=== PATIENT | male | born 1940 | race Caucasian/White ===

== ENCOUNTER 2019-04-08 10:02 | Inpatient (IN) | payer MEDICARE, MEDICAID ==
[2019-04-08] VITALS (30 sets, daily range): BP systolic 86–141; BP diastolic 41–72
[~2019-04-08] VITALS: Ht 182.9 cm; Wt 69.4 kg
[2019-04-08] MEDS ORDERED: SODIUM CHLORIDE 0.9% 1,000 ML IV ONE (10:40)
[2019-04-08] MEDS ORDERED: PIPERACILLIN/TAZ 3.375G PREMIX 50 ML IV ONE (11:15)
[2019-04-08] MEDS ORDERED: SODIUM CHLORIDE 0.9% 1000ML BAG (SEPSIS BOLUS) IV ONE (11:15)
[2019-04-08] MEDS ORDERED: VANCOMYCIN 1 G PREMIX 200 ML IV ONE (11:15)
[2019-04-08 12:41] LABS: HEMATOCRIT. 37.8 % (42.0-52.0); MEAN CORPUSCULAR HEMOGLOBIN 27.6 pg (28.0-32.0); MEAN CORPUSCULAR VOLUME 86.8 fL (80.0-94.0); MEAN PLATELET VOLUME 8.8 fl (7.4-10.4); PLATELET 119 x1000/uL (130-400); RED BLOOD CELL COUNT 4.35 mill/uL (4.7-6.1); RED CELL DISTRIBUTION WIDTH 19.9 % (11.6-14.6)
[2019-04-08 12:43] LABS: CHLORIDE 101 mEq/L (98-107); INR 1.5; PROTHROMBIN TIME 15.2 sec (9.6-11.0)
[2019-04-08 13:12] LABS: PLATELET ESTIMATE SLIGHTLY DECREASED
[2019-04-08 13:12] LABS: BG BASE EXCESS 2.3 mmol/L (-2.0-2.0); BG CARBOXYHEMOGLOBIN 0.8 % (0.5-1.5); BG DEOXYHEMOGLOBIN 0.2 % (0.0-5.0); BG FRACTION INSPIRED OXYGEN 100; BG HCO3 ACT 25.3 mmol/L (22.0-26.0); BG METHEMOGLOBIN 0.3 % (0.0-1.5); BG OXYGEN SATURATION 99.8 % (92.0-98.5); BG OXYHEMOGLOBIN 98.7 % (94.0-97.0); BG PCO2 33.8 mmHg (35.0-45.0); BG PH 7.492 (7.350-7.450); BG PO2 367.6 mmHg (75.0-100.0); BG SAMPLE SITE LEFT BRACHIAL; BG TIDAL VOLUME(mL) 550 mL; BG TOTAL HEMOGLOBIN 11.7 g/dL (12.0-18.0); BG VENT MODE VENT - A/C; BG VENT RATE 16 set
[2019-04-08 13:15] LABS: CLARITY URINE CLEAR (CLEAR); COLOR URINE DARK YELLOW (YELLOW); KETONES URINE NEGATIVE (NEGATIVE); LEUKOCYTE ESTERASE URINE TRACE (NEGATIVE); NITRITE URINE NEGATIVE (NEGATIVE); OCCULT BLOOD URINE NEGATIVE (NEGATIVE); PROTEIN URINE 1+ (NEGATIVE); SPECIFIC GRAVITY URINE 1.022 (1.005-1.030)
[2019-04-08] MEDS ORDERED: ASPIRIN 325MG EC TABLET PO ONE (13:15)
[2019-04-08] MEDS ORDERED: DEXTROSE 50% WATER 50ML SYRINGE IV ONE ×3 (13:15→17:00)
[2019-04-08] MEDS ORDERED: LORAZEPAM 2MG/ML CPJ ONE (14:42)
[2019-04-08] MEDS ORDERED: PROPOFOL 10MG/ML 100ML 100 ML IV ONE (14:49)
[2019-04-08] MEDS ORDERED: SODIUM CHLORIDE 0.9% 1,000 ML IV SCH (16:29)
[2019-04-08] MEDS ORDERED: ONDANSETRON HCL 4MG/2ML INJ IV PRN (16:30)
[2019-04-08] MEDS ORDERED: PROPOFOL 10MG/ML 100ML 100 ML IV SCH (16:30)
[2019-04-08] MEDS ORDERED: ACETAMINOPHEN 325MG TABLET PO PRN (16:30)
[2019-04-08] MEDS: IPRATROPIUM/ALBUTEROL 0.5-3(2.5)MG/3ML NEB HHN SCH ×2 (16:45→20:30)
[2019-04-08] MEDS: ENOXAPARIN 80MG/0.8ML SYR SUBCUT SCH (17:23)
[2019-04-08] MEDS: DEXT 5%/0.9% NACL 1,000 ML IV SCH (17:55)
[2019-04-08] MEDS ORDERED: PIPERACILLIN/TAZ 3.375G PREMIX 50 ML IV SCH (18:00)
[2019-04-08 18:11] LABS: BG BASE EXCESS 0.9 mmol/L (-2.0-2.0); BG CARBOXYHEMOGLOBIN 0.9 % (0.5-1.5); BG DEOXYHEMOGLOBIN 0.5 % (0.0-5.0); BG FRACTION INSPIRED OXYGEN 50; BG HCO3 ACT 24.1 mmol/L (22.0-26.0); BG METHEMOGLOBIN 0.3 % (0.0-1.5); BG OXYGEN SATURATION 99.5 % (92.0-98.5); BG OXYHEMOGLOBIN 98.3 % (94.0-97.0); BG PCO2 33.7 mmHg (35.0-45.0); BG PH 7.473 (7.350-7.450); BG PO2 194.6 mmHg (75.0-100.0); BG SAMPLE SITE RIGHT RADIAL; BG TIDAL VOLUME(mL) 450 mL; BG TOTAL HEMOGLOBIN 11.6 g/dL (12.0-18.0); BG VENT MODE VENT - A/C; BG VENT RATE 12 set
[2019-04-08] MEDS: PIPERACILLIN/TAZOBACTAM 3.375 G in DEXT 5% WATER 100 ML IV SCH (18:11)
[2019-04-08] MEDS ORDERED: POTASSIUM CHLORIDE INJ 40 MEQ in DEXT 5% WATER 250 ML IV NR (20:00)
[2019-04-08] MEDS: VANCOMYCIN 1250MG in DEXTROSE 5% WATER 250ML IV SCH (22:49)
[2019-04-09] VITALS (81 sets, daily range): BP systolic 59–130; BP diastolic 42–95
[2019-04-09] MEDS: PIPERACILLIN/TAZOBACTAM 3.375 G in DEXT 5% WATER 100 ML IV SCH ×5 (00:14→23:50)
[2019-04-09] MEDS: IPRATROPIUM/ALBUTEROL 0.5-3(2.5)MG/3ML NEB HHN SCH ×7 (00:20→23:42)
[2019-04-09] MEDS: DEXT 5%/0.9% NACL 1,000 ML IV SCH ×3 (03:29→15:45)
[2019-04-09] MEDS: ENOXAPARIN 80MG/0.8ML SYR SUBCUT SCH (06:17)
[2019-04-09 07:48] LABS: HEMATOCRIT. 32.7 % (42.0-52.0); HEMOGLOBIN. 10.7 g/dL (14.0-18.0); MEAN CORPUSCULAR HEMOGLOBIN 28.6 pg (28.0-32.0); MEAN CORPUSCULAR VOLUME 87.5 fL (80.0-94.0); MEAN PLATELET VOLUME 8.8 fl (7.4-10.4); PLATELET 107 x1000/uL (130-400); RED BLOOD CELL COUNT 3.73 mill/uL (4.7-6.1); RED CELL DISTRIBUTION WIDTH 20.4 % (11.6-14.6)
[2019-04-09 08:05] LABS: CHLORIDE 102 mEq/L (98-107)
[2019-04-09 09:52] LABS: PLATELET ESTIMATE DECREASED
[2019-04-09] MEDS ORDERED: DOBUTAMINE 250MG PREMIX 250 ML IV SCH (10:30)
[2019-04-09] MEDS: VANCOMYCIN 1250MG in DEXTROSE 5% WATER 250ML IV SCH ×2 (10:34→23:50)
[2019-04-09 10:44] LABS: BG BASE EXCESS 2.2 mmol/L (-2.0-2.0); BG CARBOXYHEMOGLOBIN 0.8 % (0.5-1.5); BG DEOXYHEMOGLOBIN 3.4 % (0.0-5.0); BG FRACTION INSPIRED OXYGEN 50; BG METHEMOGLOBIN 0.3 % (0.0-1.5); BG OXYGEN SATURATION 96.6 % (92.0-98.5); BG OXYHEMOGLOBIN 95.5 % (94.0-97.0); BG PCO2 32.7 mmHg (35.0-45.0); BG PH 7.501 (7.350-7.450); BG PO2 81.5 mmHg (75.0-100.0); BG SAMPLE SITE LEFT RADIAL; BG TIDAL VOLUME(mL) 450 mL; BG TOTAL HEMOGLOBIN 11.1 g/dL (12.0-18.0); BG VENT MODE VENT - A/C; BG VENT RATE 12 set
[2019-04-09] MEDS: PANTOPRAZOLE SODIUM 40 MG/VIAL IV SCH (13:53)
[2019-04-09] MEDS ORDERED: DEXTROSE 50% WATER 50ML SYRINGE IV PRN (16:15)
[2019-04-09] MEDS: LORAZEPAM 2MG/ML CPJ IM PRN (16:21)
[2019-04-09] MEDS: BLOOD SUGAR DIAGNOSTIC STRIP TEST SCH ×2 (16:47→23:50)
[2019-04-09] MEDS ORDERED: KCL 20MEQ/100ML PREMIX 100 ML IV NR (21:00)
[2019-04-10] VITALS (80 sets, daily range): BP systolic 90–130; BP diastolic 50–87
[2019-04-10] MEDS: LORAZEPAM 2MG/ML CPJ IM PRN (00:56)
[2019-04-10] MEDS: IPRATROPIUM/ALBUTEROL 0.5-3(2.5)MG/3ML NEB HHN SCH ×5 (04:05→20:23)
[2019-04-10] MEDS: DEXT 5%/0.9% NACL 1,000 ML IV SCH ×2 (05:28→08:18)
[2019-04-10] MEDS: PIPERACILLIN/TAZOBACTAM 3.375 G in DEXT 5% WATER 100 ML IV SCH ×4 (05:30→23:28)
[2019-04-10 06:04] LABS: HEMATOCRIT. 30.9 % (42.0-52.0); MEAN CORPUSCULAR HEMOGLOBIN 28.3 pg (28.0-32.0); MEAN CORPUSCULAR VOLUME 87.6 fL (80.0-94.0); MEAN PLATELET VOLUME 8.2 fl (7.4-10.4); PLATELET 105 x1000/uL (130-400); RED BLOOD CELL COUNT 3.52 mill/uL (4.7-6.1); RED CELL DISTRIBUTION WIDTH 19.7 % (11.6-14.6)
[2019-04-10] MEDS: BLOOD SUGAR DIAGNOSTIC STRIP TEST SCH ×3 (06:15→18:32)
[2019-04-10 06:26] LABS: CHLORIDE 102 mEq/L (98-107)
[2019-04-10] MEDS ORDERED: MAGNESIUM 1 G PREMIX 100 ML IV SCH (08:00)
[2019-04-10] MEDS: PANTOPRAZOLE SODIUM 40 MG/VIAL IV SCH (08:18)
[2019-04-10] MEDS ORDERED: ENOXAPARIN 80MG/0.8ML SYR SUBCUT SCH (09:00)
[2019-04-10] MEDS: DOBUTAMINE 250MG PREMIX 250 ML IV SCH (10:23)
[2019-04-10 12:50] LABS: PLATELET ESTIMATE DECREASED
[2019-04-10 13:15] LABS: BG BASE EXCESS 1.8 mmol/L (-2.0-2.0); BG CARBOXYHEMOGLOBIN 0.4 % (0.5-1.5); BG HCO3 ACT 24.9 mmol/L (22.0-26.0); BG METHEMOGLOBIN 0.1 % (0.0-1.5); BG OXYHEMOGLOBIN 98.5 % (94.0-97.0); BG PCO2 33.4 mmHg (35.0-45.0); BG PO2 153.7 mmHg (75.0-100.0); BG SAMPLE SITE RIGHT RADIAL; BG TIDAL VOLUME(mL) 450 mL; BG TOTAL HEMOGLOBIN 10.5 g/dL (12.0-18.0); BG VENT MODE VENT - SIMV; BG VENT RATE 12 set
[2019-04-10] MEDS ORDERED: LORAZEPAM 2MG/ML CPJ IV PRN (17:30)
[2019-04-10] MEDS: HYDROCODONE/ACETAMINOPHEN 5/325MG TABLET PO PRN (17:51)
[2019-04-10] MEDS: APIXABAN 2.5 MG TABLET PO SCH (20:24)
[2019-04-11] VITALS (92 sets, daily range): BP systolic 87–124; BP diastolic 42–86
[2019-04-11] MEDS: IPRATROPIUM/ALBUTEROL 0.5-3(2.5)MG/3ML NEB HHN SCH ×6 (00:14→20:42)
[2019-04-11] MEDS: BLOOD SUGAR DIAGNOSTIC STRIP TEST SCH ×5 (00:57→23:20)
[2019-04-11] MEDS: DEXT 5%/0.9% NACL 1,000 ML IV SCH ×2 (05:07→17:54)
[2019-04-11] MEDS: PIPERACILLIN/TAZOBACTAM 3.375 G in DEXT 5% WATER 100 ML IV SCH ×4 (05:07→23:19)
[2019-04-11 08:08] LABS: HEMATOCRIT. 30.8 % (42.0-52.0); HEMOGLOBIN. 9.9 g/dL (14.0-18.0); MEAN CORPUSCULAR HEMOGLOBIN 28.4 pg (28.0-32.0); MEAN CORPUSCULAR VOLUME 88.4 fL (80.0-94.0); MEAN PLATELET VOLUME 8.2 fl (7.4-10.4); PLATELET 96 x1000/uL (130-400); RED BLOOD CELL COUNT 3.48 mill/uL (4.7-6.1); RED CELL DISTRIBUTION WIDTH 19.7 % (11.6-14.6)
[2019-04-11 08:18] LABS: CHLORIDE 104 mEq/L (98-107)
[2019-04-11] MEDS: PANTOPRAZOLE SODIUM 40 MG/VIAL IV SCH (08:22)
[2019-04-11] MEDS: APIXABAN 2.5 MG TABLET PO SCH ×2 (08:22→21:06)
[2019-04-11] MEDS: ZINC SULFATE 220 MG ( 50 ) CAPSULE PO SCH (08:22)
[2019-04-11] MEDS: DOBUTAMINE 250MG PREMIX 250 ML IV SCH (09:44)
[2019-04-11] MEDS: ASCORBIC ACID 250 MG TABLET PO SCH (09:44)
[2019-04-11 11:15] LABS: PLATELET ESTIMATE SLIGHTLY DECREASED
[2019-04-11] MEDS: VANCOMYCIN 1250MG in DEXTROSE 5% WATER 250ML IV SCH (11:23)
[2019-04-11] MEDS ORDERED: MAGNESIUM 2 G PREMIX 50 ML IV SCH (12:00)
[2019-04-12] VITALS (56 sets, daily range): BP systolic 95–161; BP diastolic 38–94
[2019-04-12] MEDS: IPRATROPIUM/ALBUTEROL 0.5-3(2.5)MG/3ML NEB HHN SCH ×6 (00:34→21:41)
[2019-04-12] MEDS: HYDROCODONE/ACETAMINOPHEN 5/325MG TABLET PO PRN ×2 (04:31→10:47)
[2019-04-12] MEDS: BLOOD SUGAR DIAGNOSTIC STRIP TEST SCH ×3 (05:52→18:00)
[2019-04-12] MEDS: PIPERACILLIN/TAZOBACTAM 3.375 G in DEXT 5% WATER 100 ML IV SCH ×3 (05:52→18:00)
[2019-04-12 06:47] LABS: HEMATOCRIT. 31.9 % (42.0-52.0); HEMOGLOBIN. 10.2 g/dL (14.0-18.0); MEAN CORPUSCULAR HEMOGLOBIN 28.1 pg (28.0-32.0); MEAN CORPUSCULAR VOLUME 87.7 fL (80.0-94.0); MEAN PLATELET VOLUME 8.1 fl (7.4-10.4); PLATELET 107 x1000/uL (130-400); RED BLOOD CELL COUNT 3.64 mill/uL (4.7-6.1); RED CELL DISTRIBUTION WIDTH 20.2 % (11.6-14.6)
[2019-04-12 06:54] LABS: CHLORIDE 103 mEq/L (98-107)
[2019-04-12] MEDS: ZINC SULFATE 220 MG ( 50 ) CAPSULE PO SCH (08:14)
[2019-04-12] MEDS: PANTOPRAZOLE SODIUM 40 MG/VIAL IV SCH (08:14)
[2019-04-12] MEDS: APIXABAN 2.5 MG TABLET PO SCH ×2 (08:14→21:13)
[2019-04-12] MEDS: ASCORBIC ACID 250 MG TABLET PO SCH (08:14)
[2019-04-12] MEDS: DOBUTAMINE 250MG PREMIX 250 ML IV SCH (09:41)
[2019-04-12] MEDS ORDERED: AMLO2.5T45 PO (09:52)
[2019-04-12] MEDS ORDERED: FUROSEMIDE 40MG/4ML VIAL IVP NR (10:30)
[2019-04-12] MEDS: VANCOMYCIN 1250MG in DEXTROSE 5% WATER 250ML IV SCH (10:47)
[2019-04-12] MEDS: DEXT 5%/0.9% NACL 1,000 ML IV SCH (10:48)
[2019-04-12] MEDS ORDERED: MORPHINE SULFATE 2 MG/ML CPJ (NOT FOR IM USE) IV NR (11:45)
[2019-04-12 13:10] LABS: BG BASE EXCESS -0.2 mmol/L (-2.0-2.0); BG CARBOXYHEMOGLOBIN 0.3 % (0.5-1.5); BG DEOXYHEMOGLOBIN 1.7 % (0.0-5.0); BG FRACTION INSPIRED OXYGEN 40; BG HCO3 ACT 23.6 mmol/L (22.0-26.0); BG OXYGEN SATURATION 98.3 % (92.0-98.5); BG PCO2 35.1 mmHg (35.0-45.0); BG PH 7.445 (7.350-7.450); BG PO2 109.9 mmHg (75.0-100.0); BG PRESSURE SUPPORT 8; BG SAMPLE SITE RIGHT BRACHIAL; BG TOTAL HEMOGLOBIN 10.4 g/dL (12.0-18.0); BG VENT MODE VENT - CPAP
[2019-04-12 13:43] LABS: PLATELET ESTIMATE SLIGHTLY DECREASED
[2019-04-12 14:23] LABS: ETHANOL BLOOD < 10 mg/dL
[2019-04-12 14:29] LABS: T4 FREE 1.03 ng/dL (0.76-1.46)
[2019-04-12 14:47] LABS: FOLIC ACID (FOLATE) SERUM 14.4 ng/mL (>5.38)
[2019-04-12] MEDS ORDERED: BISACODYL 10MG SUPP PR PRN (18:30)
[2019-04-12] MEDS ORDERED: DOCUSATE SODIUM SUGAR FREE 100MG/10ML UDC NG PRN (18:30)
[2019-04-12 20:00] LABS: CLARITY URINE TURBID (CLEAR); COLOR URINE YELLOW (YELLOW); KETONES URINE NEGATIVE (NEGATIVE); LEUKOCYTE ESTERASE URINE TRACE (NEGATIVE); NITRITE URINE NEGATIVE (NEGATIVE); OCCULT BLOOD URINE 3+ (NEGATIVE); PROTEIN URINE TRACE (NEGATIVE); SPECIFIC GRAVITY URINE 1.013 (1.005-1.030)
[2019-04-12 20:20] LABS: *AMPHETAMINES SCREEN URINE NEGATIVE (NEGATIVE); *BARBITURATES SCREEN URINE NEGATIVE (NEGATIVE); *BENZODIAZEPINES SCREEN URINE NEGATIVE (NEGATIVE); *COCAINE SCREEN URINE NEGATIVE (NEGATIVE)
[2019-04-12 20:21] LABS: CANNABINOID URINE SCREEN NEGATIVE (NEGATIVE); METHADONE URINE SCREEN NEGATIVE (NEGATIVE); OPIATES URINE SCREEN PRESUMTIVE POSITIVE (NEGATIVE); PHENCYCLIDINE URINE SCREEN NEGATIVE (NEGATIVE)
[2019-04-13] VITALS (33 sets, daily range): BP systolic 97–143; BP diastolic 42–77
[2019-04-13] MEDS: PIPERACILLIN/TAZOBACTAM 3.375 G in DEXT 5% WATER 100 ML IV SCH ×4 (00:04→17:26)
[2019-04-13] MEDS: BLOOD SUGAR DIAGNOSTIC STRIP TEST SCH ×4 (00:04→17:25)
[2019-04-13] MEDS: IPRATROPIUM/ALBUTEROL 0.5-3(2.5)MG/3ML NEB HHN SCH ×6 (00:45→20:09)
[2019-04-13 06:05] LABS: BASOPHILS % 0.7 % (0.0-2.0); EOSINOPHILS % 1.2 % (0.0-5.0); HEMATOCRIT. 31.7 % (42.0-52.0); HEMOGLOBIN. 10.3 g/dL (14.0-18.0); MEAN CORPUSCULAR HEMOGLOBIN 28.4 pg (28.0-32.0); MEAN CORPUSCULAR VOLUME 87.1 fL (80.0-94.0); MEAN PLATELET VOLUME 8.3 fl (7.4-10.4); MONOCYTES % 8.6 % (2.0-8.0); NEUTROPHILS % 81.5 % (40.0-76.0); PLATELET 105 x1000/uL (130-400); RED BLOOD CELL COUNT 3.64 mill/uL (4.7-6.1)
[2019-04-13 06:11] LABS: CHLORIDE 102 mEq/L (98-107)
[2019-04-13] MEDS ORDERED: DEXT 5%/0.45% NACL 1000ML 1,000 ML IV SCH (08:45)
[2019-04-13] MEDS: PANTOPRAZOLE SODIUM 40 MG/VIAL IV SCH (09:45)
[2019-04-13] MEDS: FUROSEMIDE 40MG/4ML VIAL IVP SCH (09:45)
[2019-04-13] MEDS: ZINC SULFATE 220 MG ( 50 ) CAPSULE PO SCH (09:45)
[2019-04-13] MEDS: ASCORBIC ACID 250 MG TABLET PO SCH (09:45)
[2019-04-13] MEDS: APIXABAN 2.5 MG TABLET PO SCH ×2 (09:45→20:54)
[2019-04-13 11:25] LABS: BG BASE EXCESS 0.2 mmol/L (-2.0-2.0); BG CARBOXYHEMOGLOBIN 1.2 % (0.5-1.5); BG DEOXYHEMOGLOBIN 1.7 % (0.0-5.0); BG FRACTION INSPIRED OXYGEN 40; BG HCO3 ACT 23.3 mmol/L (22.0-26.0); BG METHEMOGLOBIN 0.2 % (0.0-1.5); BG OXYGEN SATURATION 98.3 % (92.0-98.5); BG OXYHEMOGLOBIN 96.9 % (94.0-97.0); BG PCO2 32.8 mmHg (35.0-45.0); BG PRESSURE SUPPORT 8; BG SAMPLE SITE RIGHT RADIAL; BG TOTAL HEMOGLOBIN 11.8 g/dL (12.0-18.0); BG VENT MODE VENT - CPAP
[2019-04-13] MEDS: VANCOMYCIN 1250MG in DEXTROSE 5% WATER 250ML IV SCH (12:27)
[2019-04-14] VITALS (27 sets, daily range): BP systolic 84–128; BP diastolic 45–87
[2019-04-14] MEDS: IPRATROPIUM/ALBUTEROL 0.5-3(2.5)MG/3ML NEB HHN SCH ×6 (00:39→20:38)
[2019-04-14] MEDS: PIPERACILLIN/TAZOBACTAM 3.375 G in DEXT 5% WATER 100 ML IV SCH ×4 (00:50→19:33)
[2019-04-14] MEDS: BLOOD SUGAR DIAGNOSTIC STRIP TEST SCH ×4 (00:50→18:00)
[2019-04-14 05:41] LABS: BASOPHILS % 0.7 % (0.0-2.0); HEMATOCRIT. 30.9 % (42.0-52.0); LYMPHOCYTES % 11.7 % (20.0-50.0); MEAN CORPUSCULAR HEMOGLOBIN 28.3 pg (28.0-32.0); MEAN CORPUSCULAR VOLUME 87.5 fL (80.0-94.0); MEAN PLATELET VOLUME 8.4 fl (7.4-10.4); MONOCYTES % 7.8 % (2.0-8.0); NEUTROPHILS % 78.8 % (40.0-76.0); PLATELET 106 x1000/uL (130-400); RED BLOOD CELL COUNT 3.53 mill/uL (4.7-6.1); RED CELL DISTRIBUTION WIDTH 19.3 % (11.6-14.6)
[2019-04-14 05:46] LABS: CHLORIDE 100 mEq/L (98-107)
[2019-04-14] MEDS: PANTOPRAZOLE SODIUM 40 MG/VIAL IV SCH (08:17)
[2019-04-14] MEDS: ZINC SULFATE 220 MG ( 50 ) CAPSULE PO SCH (08:17)
[2019-04-14] MEDS: ASCORBIC ACID 250 MG TABLET PO SCH (08:17)
[2019-04-14] MEDS: FUROSEMIDE 40MG/4ML VIAL IVP SCH (08:17)
[2019-04-14] MEDS: APIXABAN 2.5 MG TABLET PO SCH ×2 (08:17→20:32)
[2019-04-14] MEDS: VANCOMYCIN 1250MG in DEXTROSE 5% WATER 250ML IV SCH (15:20)
[2019-04-15] VITALS (53 sets, daily range): BP systolic 87–129; BP diastolic 49–79
[2019-04-15] MEDS: IPRATROPIUM/ALBUTEROL 0.5-3(2.5)MG/3ML NEB HHN SCH ×6 (00:06→20:45)
[2019-04-15] MEDS: PIPERACILLIN/TAZOBACTAM 3.375 G in DEXT 5% WATER 100 ML IV SCH ×4 (00:13→18:31)
[2019-04-15] MEDS: BLOOD SUGAR DIAGNOSTIC STRIP TEST SCH ×4 (05:58→18:27)
[2019-04-15 06:27] LABS: CHLORIDE 99 mEq/L (98-107)
[2019-04-15 06:33] LABS: BASOPHILS % 0.8 % (0.0-2.0); EOSINOPHILS % 0.5 % (0.0-5.0); HEMATOCRIT. 31.5 % (42.0-52.0); HEMOGLOBIN. 10.3 g/dL (14.0-18.0); LYMPHOCYTES % 13.1 % (20.0-50.0); MEAN CORPUSCULAR HEMOGLOBIN 28.6 pg (28.0-32.0); MEAN CORPUSCULAR VOLUME 87.9 fL (80.0-94.0); MEAN PLATELET VOLUME 8.2 fl (7.4-10.4); MONOCYTES % 10.8 % (2.0-8.0); NEUTROPHILS % 74.8 % (40.0-76.0); PLATELET 97 x1000/uL (130-400); RED BLOOD CELL COUNT 3.59 mill/uL (4.7-6.1); RED CELL DISTRIBUTION WIDTH 19.8 % (11.6-14.6)
[2019-04-15] MEDS: APIXABAN 2.5 MG TABLET PO SCH ×2 (09:00→20:44)
[2019-04-15] MEDS: ZINC SULFATE 220 MG ( 50 ) CAPSULE PO SCH (09:22)
[2019-04-15] MEDS: PANTOPRAZOLE SODIUM 40 MG/VIAL IV SCH (09:22)
[2019-04-15] MEDS: FUROSEMIDE 40MG/4ML VIAL IVP SCH (09:22)
[2019-04-15] MEDS: ASCORBIC ACID 250 MG TABLET PO SCH (09:22)
[2019-04-15] MEDS ORDERED: MIDAZOLAM HCL 5 MG/5 ML VIAL ONE (15:49)
[2019-04-15] MEDS ORDERED: FENTANYL CITRATE/PF 50MCG/ML 2ML VIAL ONE (15:49)
[2019-04-15] MEDS ORDERED: MIDAZOLAM HCL 5 MG/5 ML VIAL IV PRN (16:20)
[2019-04-16] VITALS (33 sets, daily range): BP systolic 90–127; BP diastolic 46–80
[2019-04-16] MEDS: BLOOD SUGAR DIAGNOSTIC STRIP TEST SCH ×4 (00:07→18:02)
[2019-04-16] MEDS: IPRATROPIUM/ALBUTEROL 0.5-3(2.5)MG/3ML NEB HHN SCH ×6 (00:44→20:44)
[2019-04-16 06:19] LABS: BASOPHILS % 1.2 % (0.0-2.0); EOSINOPHILS % 0.9 % (0.0-5.0); HEMATOCRIT. 30.7 % (42.0-52.0); LYMPHOCYTES % 13.3 % (20.0-50.0); MEAN CORPUSCULAR HEMOGLOBIN 28.6 pg (28.0-32.0); MEAN CORPUSCULAR VOLUME 87.5 fL (80.0-94.0); MEAN PLATELET VOLUME 8.6 fl (7.4-10.4); MONOCYTES % 7.9 % (2.0-8.0); NEUTROPHILS % 76.7 % (40.0-76.0); PLATELET 116 x1000/uL (130-400); RED BLOOD CELL COUNT 3.51 mill/uL (4.7-6.1); RED CELL DISTRIBUTION WIDTH 19.5 % (11.6-14.6)
[2019-04-16 06:21] LABS: CHLORIDE 99 mEq/L (98-107)
[2019-04-16 06:25] LABS: INR 1.2; PARTIAL THROMBOPLASTIN TIME 32.6 sec (23.4-31.0); PROTHROMBIN TIME 12.1 sec (9.6-11.0)
[2019-04-16] MEDS: ZINC SULFATE 220 MG ( 50 ) CAPSULE PO SCH (09:00)
[2019-04-16] MEDS: ASCORBIC ACID 250 MG TABLET PO SCH (09:00)
[2019-04-16] MEDS: APIXABAN 2.5 MG TABLET PO SCH ×2 (09:00→20:25)
[2019-04-16] MEDS: PANTOPRAZOLE SODIUM 40 MG/VIAL IV SCH (09:09)
[2019-04-16] MEDS: FUROSEMIDE 40MG/4ML VIAL IVP SCH (09:10)
[2019-04-16] MEDS: DEXTROSE 5% WATER 1,000 ML IV SCH (12:09)
[2019-04-16] MEDS ORDERED: LIDOCAINE HCL 1% 20ML VIAL (Pyxis) INJ ONE (13:43)
[2019-04-16] MEDS ORDERED: BUPIVACAINE HCL 0.5% (5MG/ML) 50ML ONE (13:43)
[2019-04-16] MEDS ORDERED: NORMAL SALINE 0.9% 10 ML SYR ONE (13:43)
[2019-04-16] MEDS ORDERED: BACITRACIN 50,000 UNITS/VIAL ONE (13:44)
[2019-04-17] VITALS (47 sets, daily range): BP systolic 95–138; BP diastolic 50–97
[2019-04-17] MEDS: IPRATROPIUM/ALBUTEROL 0.5-3(2.5)MG/3ML NEB HHN SCH ×6 (00:15→20:49)
[2019-04-17] MEDS: BLOOD SUGAR DIAGNOSTIC STRIP TEST SCH ×4 (00:36→18:04)
[2019-04-17 05:27] LABS: BASOPHILS % 1.2 % (0.0-2.0); EOSINOPHILS % 0.4 % (0.0-5.0); HEMATOCRIT. 32.5 % (42.0-52.0); HEMOGLOBIN. 10.5 g/dL (14.0-18.0); LYMPHOCYTES % 14.6 % (20.0-50.0); MEAN CORPUSCULAR HEMOGLOBIN 28.4 pg (28.0-32.0); MEAN PLATELET VOLUME 8.3 fl (7.4-10.4); MONOCYTES % 8.7 % (2.0-8.0); NEUTROPHILS % 75.1 % (40.0-76.0); PLATELET 143 x1000/uL (130-400); RED BLOOD CELL COUNT 3.69 mill/uL (4.7-6.1); RED CELL DISTRIBUTION WIDTH 19.8 % (11.6-14.6)
[2019-04-17 06:55] LABS: CHLORIDE 99 mEq/L (98-107)
[2019-04-17] MEDS: ZINC SULFATE 220 MG ( 50 ) CAPSULE PO SCH (08:49)
[2019-04-17] MEDS: FUROSEMIDE 40MG/4ML VIAL IVP SCH (08:49)
[2019-04-17] MEDS: PANTOPRAZOLE SODIUM 40 MG/VIAL IV SCH (08:49)
[2019-04-17] MEDS: APIXABAN 2.5 MG TABLET PO SCH ×2 (08:49→22:34)
[2019-04-17] MEDS: DEXTROSE 5% WATER 1,000 ML IV SCH (08:49)
[2019-04-17] MEDS: ASCORBIC ACID 250 MG TABLET PO SCH (08:49)
[2019-04-17] MEDS ORDERED: POTASSIUM CHLORIDE 20MEQ/PACKET PO NR (12:00)
[2019-04-17] MEDS: DILTIAZEM HCL 60MG TABLET GT SCH ×2 (13:59→22:35)
[2019-04-18] VITALS (15 sets, daily range): BP systolic 92–132; BP diastolic 56–78
[2019-04-18] MEDS: BLOOD SUGAR DIAGNOSTIC STRIP TEST SCH ×4 (00:16→17:55)
[2019-04-18] MEDS: IPRATROPIUM/ALBUTEROL 0.5-3(2.5)MG/3ML NEB HHN SCH ×6 (00:30→20:37)
[2019-04-18] MEDS: DILTIAZEM HCL 60MG TABLET GT SCH ×3 (06:47→21:37)
[2019-04-18] MEDS: ASCORBIC ACID 250 MG TABLET PO SCH (08:26)
[2019-04-18] MEDS: PANTOPRAZOLE SODIUM 40 MG/VIAL IV SCH (08:26)
[2019-04-18] MEDS: ZINC SULFATE 220 MG ( 50 ) CAPSULE PO SCH (08:26)
[2019-04-18] MEDS: APIXABAN 2.5 MG TABLET PO SCH ×2 (08:26→21:37)
[2019-04-18] MEDS: FUROSEMIDE 40MG/4ML VIAL IVP SCH (08:26)
[2019-04-18 08:47] LABS: BASOPHILS % 0.2 % (0.0-2.0); EOSINOPHILS % 0.2 % (0.0-5.0); HEMOGLOBIN. 11.3 g/dL (14.0-18.0); LYMPHOCYTES % 12.8 % (20.0-50.0); MEAN CORPUSCULAR HEMOGLOBIN 28.7 pg (28.0-32.0); MEAN CORPUSCULAR VOLUME 88.8 fL (80.0-94.0); MONOCYTES % 8.2 % (2.0-8.0); NEUTROPHILS % 78.6 % (40.0-76.0); RED BLOOD CELL COUNT 3.94 mill/uL (4.7-6.1); RED CELL DISTRIBUTION WIDTH 20.5 % (11.6-14.6)
[2019-04-18 08:54] LABS: CHLORIDE 98 mEq/L (98-107)
[2019-04-19] VITALS (15 sets, daily range): BP systolic 100–142; BP diastolic 40–82
[2019-04-19] MEDS: IPRATROPIUM/ALBUTEROL 0.5-3(2.5)MG/3ML NEB HHN SCH ×5 (00:37→15:55)
[2019-04-19] MEDS: BLOOD SUGAR DIAGNOSTIC STRIP TEST SCH ×4 (05:57→17:56)
[2019-04-19] MEDS: DILTIAZEM HCL 60MG TABLET GT SCH ×3 (05:57→22:45)
[2019-04-19] MEDS: ASCORBIC ACID 250 MG TABLET PO SCH (08:54)
[2019-04-19] MEDS: APIXABAN 2.5 MG TABLET PO SCH ×2 (08:54→22:45)
[2019-04-19] MEDS: PANTOPRAZOLE SODIUM 40 MG/VIAL IV SCH (08:54)
[2019-04-19] MEDS: ZINC SULFATE 220 MG ( 50 ) CAPSULE PO SCH (08:54)
[2019-04-19] MEDS: FUROSEMIDE 40MG/4ML VIAL IVP SCH (08:54)
[2019-04-20] VITALS (10 sets, daily range): BP systolic 102–113; BP diastolic 54–75
[2019-04-20] MEDS: BLOOD SUGAR DIAGNOSTIC STRIP TEST SCH ×2 (00:48→06:30)
[2019-04-20] MEDS: IPRATROPIUM/ALBUTEROL 0.5-3(2.5)MG/3ML NEB HHN SCH ×3 (01:11→08:50)
[2019-04-20] MEDS: DILTIAZEM HCL 60MG TABLET GT SCH (06:39)
[2019-04-20] MEDS: ZINC SULFATE 220 MG ( 50 ) CAPSULE PO SCH (08:39)
[2019-04-20] MEDS: APIXABAN 2.5 MG TABLET PO SCH (08:39)
[2019-04-20] MEDS: ASCORBIC ACID 250 MG TABLET PO SCH (08:39)
[2019-04-20] MEDS: FUROSEMIDE 40MG/4ML VIAL IVP SCH (08:39)
[2019-04-20] MEDS: PANTOPRAZOLE SODIUM 40 MG/VIAL IV SCH (08:39)
== END 2019-04-20 11:50 | DRG 870 ==
LOC: ER 10:02 → CVICU 12:22 → EDBEDREQ 12:25 → ENRESERV 13:29 → 3WST 04-18 02:27
PROVIDERS: ADMIT Internal Medicine; ATTEND Internal Medicine
PROC: 5A1955Z Respiratory Ventilation, Greater than 96 Consecutive Hours (ICD-10-PCS; principal; 2019-04-08)
PROC: 0BH17EZ Insertion of Endotracheal Airway into Trachea, Via Natural or Artificial Opening (ICD-10-PCS; 2019-04-08)
PROC: 02HV33Z Insertion of Infusion Device into Superior Vena Cava, Percutaneous Approach (ICD-10-PCS; 2019-04-08)
PROC: B548ZZA Ultrasonography of Superior Vena Cava, Guidance (ICD-10-PCS; 2019-04-08)
PROC: 0DH63UZ Insertion of Feeding Device into Stomach, Percutaneous Approach (ICD-10-PCS; 2019-04-15)
DX: A41.9 Sepsis, unspecified organism (principal); G92 Toxic encephalopathy; J96.01 Acute respiratory failure with hypoxia; J69.0 Pneumonitis due to inhalation of food and vomit; E43 Unspecified severe protein-calorie malnutrition; I21.4 Non-ST elevation (NSTEMI) myocardial infarction; I31.3 Pericardial effusion (noninflammatory); I42.9 Cardiomyopathy, unspecified; K22.10 Ulcer of esophagus without bleeding; I47.2 Ventricular tachycardia; I48.20 Chronic atrial fibrillation, unspecified; I50.22 Chronic systolic (congestive) heart failure; Z99.11 Dependence on respirator [ventilator] status; I27.20 Pulmonary hypertension, unspecified; D69.6 Thrombocytopenia, unspecified; R65.20 Severe sepsis without septic shock; D64.9 Anemia, unspecified; E11.649 Type 2 diabetes mellitus with hypoglycemia without coma; E87.6 Hypokalemia; I08.1 Rheumatic disorders of both mitral and tricuspid valves; I11.0 Hypertensive heart disease with heart failure; I25.10 Atherosclerotic heart disease of native coronary artery without angina pectoris; I49.3 Ventricular premature depolarization; J44.9 Chronic obstructive pulmonary disease, unspecified; F01.50 Vascular dementia, unspecified severity, without behavioral disturbance, psychotic disturbance, mood disturbance, and anxiety; N40.0 Benign prostatic hyperplasia without lower urinary tract symptoms; R56.9 Unspecified convulsions; G31.9 Degenerative disease of nervous system, unspecified; R62.7 Adult failure to thrive; Z79.01 Long term (current) use of anticoagulants; Z68.20 Body mass index [BMI] 20.0-20.9, adult; Z86.73 Personal history of transient ischemic attack (TIA), and cerebral infarction without residual deficits
CPT/HCPCS: 36415; 36600; 70551; 71045; 76937; 80048; 80053; 80202; 80305; 80320; 81003; 82140; 82375; 82607; 82746; 82805; 82962; 83036; 83605; 83735; 83880; 84134; 84145; 84439; 84443; 84478; 84481; 84484; 85025; 86850; 86900; 87070; 92610; 93005; 93970; 94002; 94003; 94640; 96365; 97162; 97166; 99291; A6261; C1725; C9113; J1250; J1650; J1940; J2060; J2250; J2543; J2704; J3010; J3370; J3475; J3480; J3490; J7030; J7040; J7042; J7060; J7070; G0480

== ENCOUNTER 2019-04-30 01:10 | Inpatient (IN) | payer MEDICARE, MEDICAID ==
[~2019-04-30] VITALS: Ht 170.2 cm; Wt 69.4 kg
[2019-04-30 01:56] LABS: HEMATOCRIT 26.8 % (42.0-52.0); HEMOGLOBIN 8.7 g/dL (14.0-18.0); MEAN CORPUSCULAR HEMOGLOBIN 29.6 pg (28.0-32.0); MEAN CORPUSCULAR VOLUME 91.4 fL (80.0-94.0); PLATELET 374 x1000/uL (130-400); RED BLOOD CELL COUNT 2.94 mill/uL (4.7-6.1); RED CELL DISTRIBUTION WIDTH 21.3 % (11.6-14.6)
[2019-04-30 02:03] LABS: CHLORIDE 92 mEq/L (98-107)
[2019-04-30] MEDS ORDERED: FUROSEMIDE 40MG/4ML VIAL IVP NR (04:30)
[2019-04-30] MEDS: FAMOTIDINE 20MG/2ML VIAL IV SCH ×2 (04:31→10:47)
[2019-04-30 12:40] VITALS: BP 104/64
[2019-04-30 12:50] VITALS: BP 104/64
[2019-04-30] MEDS ORDERED: FURO40TA5 IV (14:34)
[2019-04-30] MEDS ORDERED: APIX2.5T GT (14:34)
[2019-04-30] MEDS ORDERED: IPRA3AMP31 IH (14:34)
[2019-04-30] MEDS ORDERED: DILT60TA35 GT (14:34)
[2019-04-30] MEDS ORDERED: PROT40 IV (14:34)
[2019-04-30 16:00] VITALS: BP 99/55
[2019-04-30] MEDS ORDERED: ACETAMINOPHEN 325MG TABLET PO PRN (18:45)
[2019-04-30] MEDS ORDERED: ONDANSETRON HCL 4MG/2ML INJ IV PRN (18:45)
[2019-04-30] MEDS ORDERED: IPRATROPIUM/ALBUTEROL 0.5-3(2.5)MG/3ML NEB NEB PRN (18:45)
[2019-04-30] MEDS: PANTOPRAZOLE SODIUM 40 MG/VIAL IV SCH (18:51)
[2019-04-30 20:00] VITALS: BP 108/72
[2019-04-30 20:51] LABS: TOTAL IRON BINDING CAPACITY 306 ug/dL (250-450)
[2019-04-30] MEDS: CARVEDILOL 3.125 MG TABLET PO SCH (23:17)
[2019-04-30] MEDS: DOCUSATE SODIUM SUGAR FREE 100MG/10ML UDC NG SCH (23:17)
[2019-05-01] VITALS: BP 102/50
[2019-05-01 04:00] VITALS: BP 104/65
[2019-05-01 08:20] VITALS: BP 113/69
[2019-05-01 08:20] LABS: HEMATOCRIT. 29.8 % (42.0-52.0); HEMOGLOBIN. 9.4 g/dL (14.0-18.0); MEAN CORPUSCULAR HEMOGLOBIN 29.3 pg (28.0-32.0); MEAN CORPUSCULAR VOLUME 92.8 fL (80.0-94.0); MEAN PLATELET VOLUME 8.1 fl (7.4-10.4); PLATELET 417 x1000/uL (130-400); RED BLOOD CELL COUNT 3.21 mill/uL (4.7-6.1); RED CELL DISTRIBUTION WIDTH 21.7 % (11.6-14.6)
[2019-05-01] MEDS: CARVEDILOL 3.125 MG TABLET PO SCH ×2 (08:37→21:00)
[2019-05-01] MEDS: PANTOPRAZOLE SODIUM 40 MG/VIAL IV SCH (08:37)
[2019-05-01] MEDS: DOCUSATE SODIUM SUGAR FREE 100MG/10ML UDC NG SCH ×2 (08:38→17:31)
[2019-05-01 08:44] LABS: CHLORIDE 94 mEq/L (98-107)
[2019-05-01] MEDS ORDERED: ASPIRIN 81MG TABLET PO SCH (09:00)
[2019-05-01] MEDS: LISINOPRIL 2.5MG TABLET PO SCH (09:00)
[2019-05-01] MEDS: FUROSEMIDE 40MG/4ML VIAL IVP SCH (09:13)
[2019-05-01 12:29] VITALS: BP 88/62
[2019-05-01 12:33] LABS: BG BASE EXCESS -2.8 mmol/L (-2.0-2.0); BG CARBOXYHEMOGLOBIN 0.1 % (0.5-1.5); BG FRACTION INSPIRED OXYGEN 32; BG HCO3 ACT 21.6 mmol/L (22.0-26.0); BG METHEMOGLOBIN 0.1 % (0.0-1.5); BG OXYHEMOGLOBIN 95.8 % (94.0-97.0); BG PCO2 36.2 mmHg (35.0-45.0); BG PH 7.394 (7.350-7.450); BG SAMPLE SITE RIGHT RADIAL; BG VENT MODE NASAL CANNULA
[2019-05-01] MEDS ORDERED: DEXTROSE 50% WATER 50ML SYRINGE IV PRN (12:45)
[2019-05-01] MEDS ORDERED: PIPERACILLIN/TAZOBACTAM 3.375 G/VIAL IV SCH (14:00)
[2019-05-01] MEDS: PIPERACILLIN/TAZOBACTAM 3.375 G in DEXT 5% WATER 100 ML IV SCH ×2 (14:41→22:26)
[2019-05-01 15:52] VITALS: BP 85/52
[2019-05-01] MEDS ORDERED: VANCOMYCIN 1500MG in DEXTROSE 5% WATER 250ML IV SCH (16:00)
[2019-05-01] MEDS: BLOOD SUGAR DIAGNOSTIC STRIP TEST SCH ×2 (17:31→21:10)
[2019-05-01 20:10] VITALS: BP 91/62
[2019-05-01] MEDS: INSULIN LISPRO 100 UNITS/ML SUBCUT SCH (22:21)
[2019-05-02] VITALS (50 sets, daily range): BP systolic 78–133; BP diastolic 33–96
[2019-05-02] MEDS: PIPERACILLIN/TAZOBACTAM 3.375 G in DEXT 5% WATER 100 ML IV SCH ×4 (06:04→23:39)
[2019-05-02 06:07] LABS: HEMATOCRIT. 31.4 % (42.0-52.0); MEAN CORPUSCULAR HEMOGLOBIN 29.6 pg (28.0-32.0); MEAN PLATELET VOLUME 8.2 fl (7.4-10.4); PLATELET 345 x1000/uL (130-400); RED BLOOD CELL COUNT 3.38 mill/uL (4.7-6.1); RED CELL DISTRIBUTION WIDTH 21.5 % (11.6-14.6)
[2019-05-02] MEDS: INSULIN LISPRO 100 UNITS/ML SUBCUT SCH ×3 (07:34→23:38)
[2019-05-02] MEDS: BLOOD SUGAR DIAGNOSTIC STRIP TEST SCH ×3 (07:34→23:38)
[2019-05-02] MEDS: PANTOPRAZOLE SODIUM 40 MG/VIAL IV SCH (08:24)
[2019-05-02] MEDS: DOCUSATE SODIUM SUGAR FREE 100MG/10ML UDC NG SCH ×2 (08:24→16:58)
[2019-05-02] MEDS: CARVEDILOL 3.125 MG TABLET PO SCH ×2 (08:25→21:00)
[2019-05-02] MEDS: LISINOPRIL 2.5MG TABLET PO SCH (08:26)
[2019-05-02] MEDS: FUROSEMIDE 40MG/4ML VIAL IVP SCH (08:26)
[2019-05-02 12:12] LABS: BG BASE EXCESS 1.4 mmol/L (-2.0-2.0); BG CARBOXYHEMOGLOBIN 0.1 % (0.5-1.5); BG DEOXYHEMOGLOBIN 0.1 % (0.0-5.0); BG FRACTION INSPIRED OXYGEN 100; BG HCO3 ACT 24.4 mmol/L (22.0-26.0); BG METHEMOGLOBIN 0.3 % (0.0-1.5); BG OXYGEN SATURATION 99.9 % (92.0-98.5); BG OXYHEMOGLOBIN 99.5 % (94.0-97.0); BG PCO2 32.4 mmHg (35.0-45.0); BG PH 7.495 (7.350-7.450); BG PO2 381.4 mmHg (75.0-100.0); BG SAMPLE SITE RIGHT RADIAL; BG TOTAL HEMOGLOBIN 9.3 g/dL (12.0-18.0); BG VENT MODE MASK - NRB
[2019-05-02] MEDS: NOREPINEPHRINE 8 MG in DEXT 5% WATER 242 ML IV PRN (13:55)
[2019-05-02 14:16] LABS: NUCLEATED RED BLOOD CELLS 2 /100 WBC; PLATELET ESTIMATE SLIGHTLY INCREASED
[2019-05-02] MEDS: VANCOMYCIN 1250MG in DEXTROSE 5% WATER 250ML IV SCH (16:52)
[2019-05-02 16:54] LABS: PLATELET ESTIMATE NORMAL
[2019-05-02] MEDS ORDERED: DEXTROSE 50% WATER 50ML SYRINGE IV PRN (20:30)
[2019-05-02] MEDS: IPRATROPIUM/ALBUTEROL 0.5-3(2.5)MG/3ML NEB HHN PRN (21:06)
[2019-05-03] VITALS (81 sets, daily range): BP systolic 80–130; BP diastolic 40–80
[2019-05-03] MEDS: NOREPINEPHRINE 8 MG in DEXT 5% WATER 242 ML IV PRN ×2 (04:33→22:43)
[2019-05-03] MEDS: PIPERACILLIN/TAZOBACTAM 3.375 G in DEXT 5% WATER 100 ML IV SCH ×4 (05:50→23:30)
[2019-05-03] MEDS: BLOOD SUGAR DIAGNOSTIC STRIP TEST SCH ×4 (05:50→23:23)
[2019-05-03] MEDS: INSULIN LISPRO 100 UNITS/ML SUBCUT SCH ×4 (05:50→23:30)
[2019-05-03] MEDS: FUROSEMIDE 40MG/4ML VIAL IVP SCH (08:09)
[2019-05-03] MEDS: DOCUSATE SODIUM SUGAR FREE 100MG/10ML UDC NG SCH ×2 (08:09→18:20)
[2019-05-03] MEDS: PANTOPRAZOLE SODIUM 40 MG/VIAL IV SCH (08:09)
[2019-05-03] MEDS: CARVEDILOL 3.125 MG TABLET PO SCH (08:09)
[2019-05-03] MEDS: LISINOPRIL 2.5MG TABLET PO SCH (09:00)
[2019-05-03] MEDS ORDERED: MIDODRINE HCL 5MG TABLET PO SCH (17:00)
[2019-05-03] MEDS: VANCOMYCIN 1250MG in DEXTROSE 5% WATER 250ML IV SCH (18:25)
[2019-05-04] VITALS (99 sets, daily range): BP systolic 84–128; BP diastolic 32–105
[2019-05-04] MEDS: BLOOD SUGAR DIAGNOSTIC STRIP TEST SCH ×4 (05:11→23:21)
[2019-05-04] MEDS: INSULIN LISPRO 100 UNITS/ML SUBCUT SCH ×4 (05:17→23:21)
[2019-05-04] MEDS: PIPERACILLIN/TAZOBACTAM 3.375 G in DEXT 5% WATER 100 ML IV SCH ×4 (05:46→23:21)
[2019-05-04 06:25] LABS: HEMATOCRIT. 29.9 % (42.0-52.0); HEMOGLOBIN. 9.3 g/dL (14.0-18.0); MEAN CORPUSCULAR HEMOGLOBIN 28.5 pg (28.0-32.0); MEAN CORPUSCULAR VOLUME 91.8 fL (80.0-94.0); MEAN PLATELET VOLUME 8.3 fl (7.4-10.4); PLATELET 283 x1000/uL (130-400); RED BLOOD CELL COUNT 3.26 mill/uL (4.7-6.1); RED CELL DISTRIBUTION WIDTH 21.3 % (11.6-14.6)
[2019-05-04 06:43] LABS: CHLORIDE 96 mEq/L (98-107)
[2019-05-04] MEDS: PANTOPRAZOLE SODIUM 40 MG/VIAL IV SCH (08:43)
[2019-05-04] MEDS: DOCUSATE SODIUM SUGAR FREE 100MG/10ML UDC NG SCH ×2 (08:43→17:16)
[2019-05-04] MEDS: MIDODRINE HCL 5MG TABLET PO SCH ×3 (09:00→17:16)
[2019-05-04] MEDS: IPRATROPIUM/ALBUTEROL 0.5-3(2.5)MG/3ML NEB HHN PRN ×3 (09:01→20:23)
[2019-05-04] MEDS ORDERED: POTASSIUM CHLORIDE INJ 40 MEQ in DEXT 5% WATER 250 ML IV NR (10:00)
[2019-05-04] MEDS: VANCOMYCIN 1 G PREMIX 200 ML IV SCH (13:46)
[2019-05-04] MEDS: NOREPINEPHRINE 8 MG in DEXT 5% WATER 242 ML IV PRN (13:50)
[2019-05-04 17:00] LABS: PLATELET ESTIMATE NORMAL
[2019-05-05] VITALS (60 sets, daily range): BP systolic 89–139; BP diastolic 32–93
[2019-05-05] MEDS: PIPERACILLIN/TAZOBACTAM 3.375 G in DEXT 5% WATER 100 ML IV SCH ×3 (05:16→18:23)
[2019-05-05] MEDS: BLOOD SUGAR DIAGNOSTIC STRIP TEST SCH ×3 (05:52→18:43)
[2019-05-05] MEDS: VANCOMYCIN 1 G PREMIX 200 ML IV SCH (05:57)
[2019-05-05] MEDS: INSULIN LISPRO 100 UNITS/ML SUBCUT SCH ×3 (05:57→18:00)
[2019-05-05 07:18] LABS: CHLORIDE 97 mEq/L (98-107)
[2019-05-05] MEDS: PANTOPRAZOLE SODIUM 40 MG/VIAL IV SCH (08:15)
[2019-05-05] MEDS: DOCUSATE SODIUM SUGAR FREE 100MG/10ML UDC NG SCH ×2 (08:16→17:22)
[2019-05-05] MEDS: MIDODRINE HCL 5MG TABLET PO SCH ×3 (08:17→17:23)
[2019-05-05 15:36] LABS: BG BASE EXCESS 8.2 mmol/L (-2.0-2.0); BG DEOXYHEMOGLOBIN 0.3 % (0.0-5.0); BG FRACTION INSPIRED OXYGEN 100; BG METHEMOGLOBIN 0.5 % (0.0-1.5); BG OXYGEN SATURATION 99.7 % (92.0-98.5); BG OXYHEMOGLOBIN 99.2 % (94.0-97.0); BG PCO2 41.2 mmHg (35.0-45.0); BG PH 7.508 (7.350-7.450); BG PO2 492.6 mmHg (75.0-100.0); BG SAMPLE SITE RIGHT BRACHIAL; BG TOTAL HEMOGLOBIN 10.6 g/dL (12.0-18.0); BG VENT MODE MASK - NRB
[2019-05-05] MEDS: IPRATROPIUM/ALBUTEROL 0.5-3(2.5)MG/3ML NEB HHN SCH (20:19)
[2019-05-06] VITALS (43 sets, daily range): BP systolic 82–136; BP diastolic 38–107
[2019-05-06] MEDS: IPRATROPIUM/ALBUTEROL 0.5-3(2.5)MG/3ML NEB HHN SCH ×4 (00:33→20:24)
[2019-05-06 05:45] LABS: HEMATOCRIT. 28.7 % (42.0-52.0); HEMOGLOBIN. 9.1 g/dL (14.0-18.0); MEAN CORPUSCULAR HEMOGLOBIN 29.3 pg (28.0-32.0); MEAN CORPUSCULAR VOLUME 92.2 fL (80.0-94.0); MEAN PLATELET VOLUME 8.5 fl (7.4-10.4); PLATELET 258 x1000/uL (130-400); RED BLOOD CELL COUNT 3.11 mill/uL (4.7-6.1); RED CELL DISTRIBUTION WIDTH 20.4 % (11.6-14.6)
[2019-05-06] MEDS: BLOOD SUGAR DIAGNOSTIC STRIP TEST SCH ×4 (06:00→17:13)
[2019-05-06 06:32] LABS: CHLORIDE 95 mEq/L (98-107)
[2019-05-06] MEDS: PIPERACILLIN/TAZOBACTAM 3.375 G in DEXT 5% WATER 100 ML IV SCH ×5 (07:12→17:02)
[2019-05-06] MEDS: INSULIN LISPRO 100 UNITS/ML SUBCUT SCH ×4 (07:13→17:13)
[2019-05-06] MEDS: MIDODRINE HCL 5MG TABLET PO SCH ×3 (08:19→17:00)
[2019-05-06] MEDS: PANTOPRAZOLE SODIUM 40 MG/VIAL IV SCH (08:19)
[2019-05-06] MEDS: DOCUSATE SODIUM SUGAR FREE 100MG/10ML UDC NG SCH ×2 (08:19→16:59)
[2019-05-06 08:32] LABS: NUCLEATED RED BLOOD CELLS 5 /100 WBC; PLATELET ESTIMATE NORMAL
[2019-05-06] MEDS ORDERED: DIGOXIN 500MCG/2ML AMP IV SCH (11:00)
[2019-05-06] MEDS ORDERED: DIGOXIN 500MCG/2ML AMP IV NR (15:15)
[2019-05-06] MEDS: VANCOMYCIN 1 G PREMIX 200 ML IV SCH ×2 (17:00)
[2019-05-07] VITALS (39 sets, daily range): BP systolic 65–139; BP diastolic 43–88
[2019-05-07] MEDS: PIPERACILLIN/TAZOBACTAM 3.375 G in DEXT 5% WATER 100 ML IV SCH ×5 (00:05→23:55)
[2019-05-07] MEDS: INSULIN LISPRO 100 UNITS/ML SUBCUT SCH ×5 (00:09→23:44)
[2019-05-07] MEDS: BLOOD SUGAR DIAGNOSTIC STRIP TEST SCH ×5 (00:10→23:44)
[2019-05-07] MEDS: IPRATROPIUM/ALBUTEROL 0.5-3(2.5)MG/3ML NEB HHN SCH ×6 (00:26→21:15)
[2019-05-07 05:53] LABS: HEMATOCRIT. 27.4 % (42.0-52.0); HEMOGLOBIN. 8.6 g/dL (14.0-18.0); MEAN CORPUSCULAR HEMOGLOBIN 28.8 pg (28.0-32.0); MEAN CORPUSCULAR VOLUME 91.8 fL (80.0-94.0); MEAN PLATELET VOLUME 8.6 fl (7.4-10.4); PLATELET 256 x1000/uL (130-400); RED BLOOD CELL COUNT 2.98 mill/uL (4.7-6.1); RED CELL DISTRIBUTION WIDTH 20.2 % (11.6-14.6)
[2019-05-07 06:06] LABS: CHLORIDE 94 mEq/L (98-107)
[2019-05-07] MEDS ORDERED: BISACODYL 10MG SUPP PR NR (08:15)
[2019-05-07] MEDS ORDERED: LACTULOSE 20G/30ML UDC PO NR (08:15)
[2019-05-07] MEDS: PANTOPRAZOLE SODIUM 40 MG/VIAL IV SCH (08:42)
[2019-05-07] MEDS: ZINC SULFATE 220 MG ( 50 ) CAPSULE PO SCH (08:42)
[2019-05-07] MEDS: DOCUSATE SODIUM SUGAR FREE 100MG/10ML UDC NG SCH ×2 (08:42→16:50)
[2019-05-07] MEDS: ASCORBIC ACID 500 MG TABLET PO SCH (08:42)
[2019-05-07] MEDS: MIDODRINE HCL 5MG TABLET PO SCH ×3 (08:42→16:50)
[2019-05-07 10:10] LABS: PLATELET ESTIMATE NORMAL
[2019-05-07] MEDS: ACETYLCYSTEINE 100MG/ML 10% VIAL 4ML INH SCH (12:15)
[2019-05-07] MEDS: DIGOXIN 500MCG/2ML AMP IV SCH (12:32)
[2019-05-07] MEDS ORDERED: IOHEXOL-350 100 ML BOTTLE ONE (15:04)
[2019-05-07 17:22] LABS: BG BASE EXCESS 5.9 mmol/L (-2.0-2.0); BG CARBOXYHEMOGLOBIN 0.3 % (0.5-1.5); BG DEOXYHEMOGLOBIN 6.3 % (0.0-5.0); BG FRACTION INSPIRED OXYGEN 44; BG HCO3 ACT 31.8 mmol/L (22.0-26.0); BG OXYGEN SATURATION 93.7 % (92.0-98.5); BG OXYHEMOGLOBIN 93.4 % (94.0-97.0); BG PCO2 52.8 mmHg (35.0-45.0); BG PH 7.397 (7.350-7.450); BG PO2 76.3 mmHg (75.0-100.0); BG SAMPLE SITE RIGHT BRACHIAL; BG TOTAL HEMOGLOBIN 10.7 g/dL (12.0-18.0); BG VENT MODE NASAL CANNULA
[2019-05-07] MEDS ORDERED: DIGOXIN 500MCG/2ML AMP IV SCH (18:00)
[2019-05-07] MEDS ORDERED: FUROSEMIDE 20MG/2ML VIAL IVP NR (19:00)
[2019-05-07] MEDS ORDERED: VANCOMYCIN 1 G PREMIX 200 ML IV SCH (21:00)
[2019-05-07 21:33] LABS: BG CARBOXYHEMOGLOBIN 0.2 % (0.5-1.5); BG DEOXYHEMOGLOBIN 0.3 % (0.0-5.0); BG FRACTION INSPIRED OXYGEN 100; BG HCO3 ACT 29.4 mmol/L (22.0-26.0); BG METHEMOGLOBIN 0.2 % (0.0-1.5); BG OXYGEN SATURATION 99.7 % (92.0-98.5); BG OXYHEMOGLOBIN 99.3 % (94.0-97.0); BG PCO2 37.7 mmHg (35.0-45.0); BG PO2 271.2 mmHg (75.0-100.0); BG SAMPLE SITE RIGHT RADIAL; BG TOTAL HEMOGLOBIN 9.9 g/dL (12.0-18.0); BG VENT MODE MASK - NRB
[2019-05-07] MEDS ORDERED: METHYLPREDNISOLONE SOD SUCC 125 MG/2 ML VIAL IV NR ×2 (23:34→23:50)
[2019-05-08] VITALS (47 sets, daily range): BP systolic 90–129; BP diastolic 34–86
[2019-05-08] MEDS: ACETYLCYSTEINE 100MG/ML 10% VIAL 4ML INH SCH ×3 (00:57→16:56)
[2019-05-08] MEDS: IPRATROPIUM/ALBUTEROL 0.5-3(2.5)MG/3ML NEB HHN SCH ×6 (00:57→20:19)
[2019-05-08] MEDS: INSULIN LISPRO 100 UNITS/ML SUBCUT SCH ×3 (06:00→17:29)
[2019-05-08] MEDS: BLOOD SUGAR DIAGNOSTIC STRIP TEST SCH ×3 (06:02→17:29)
[2019-05-08] MEDS: METHYLPREDNISOLONE SOD SUCC 40 MG/ML VIAL IV SCH ×3 (06:24→22:58)
[2019-05-08] MEDS: PIPERACILLIN/TAZOBACTAM 3.375 G in DEXT 5% WATER 100 ML IV SCH ×3 (06:24→17:29)
[2019-05-08 06:50] LABS: HEMATOCRIT. 30.5 % (42.0-52.0); HEMOGLOBIN. 9.4 g/dL (14.0-18.0); MEAN CORPUSCULAR HEMOGLOBIN 28.6 pg (28.0-32.0); MEAN PLATELET VOLUME 8.6 fl (7.4-10.4); PLATELET 265 x1000/uL (130-400); RED BLOOD CELL COUNT 3.28 mill/uL (4.7-6.1)
[2019-05-08 07:04] LABS: CHLORIDE 95 mEq/L (98-107)
[2019-05-08 07:33] LABS: DIGOXIN 0.7 ng/mL (0.9-2.0)
[2019-05-08] MEDS: MIDODRINE HCL 5MG TABLET PO SCH ×3 (08:41→17:28)
[2019-05-08] MEDS: ASCORBIC ACID 500 MG TABLET PO SCH (08:41)
[2019-05-08] MEDS: ZINC SULFATE 220 MG ( 50 ) CAPSULE PO SCH (08:41)
[2019-05-08] MEDS: DOCUSATE SODIUM SUGAR FREE 100MG/10ML UDC NG SCH ×2 (08:41→17:28)
[2019-05-08] MEDS: PANTOPRAZOLE SODIUM 40 MG/VIAL IV SCH (08:41)
[2019-05-08] MEDS: FUROSEMIDE 40MG/4ML VIAL IVP SCH (11:13)
[2019-05-08] MEDS: DIGOXIN 500MCG/2ML AMP IV SCH ×2 (11:13→17:28)
[2019-05-08 17:13] LABS: PLATELET ESTIMATE NORMAL
[2019-05-08] MEDS: VANCOMYCIN 1 G PREMIX 200 ML IV SCH (21:24)
[2019-05-09] VITALS (46 sets, daily range): BP systolic 84–154; BP diastolic 34–102
[2019-05-09] MEDS: BLOOD SUGAR DIAGNOSTIC STRIP TEST SCH ×5 (00:08→23:40)
[2019-05-09] MEDS: INSULIN LISPRO 100 UNITS/ML SUBCUT SCH ×5 (00:11→23:47)
[2019-05-09] MEDS: IPRATROPIUM/ALBUTEROL 0.5-3(2.5)MG/3ML NEB HHN SCH ×6 (00:31→21:10)
[2019-05-09] MEDS: ACETYLCYSTEINE 100MG/ML 10% VIAL 4ML INH SCH ×3 (00:31→16:29)
[2019-05-09] MEDS: METHYLPREDNISOLONE SOD SUCC 40 MG/ML VIAL IV SCH ×3 (06:00→21:01)
[2019-05-09] MEDS: FUROSEMIDE 40MG/4ML VIAL IVP SCH (08:52)
[2019-05-09] MEDS: PANTOPRAZOLE SODIUM 40 MG/VIAL IV SCH (08:52)
[2019-05-09] MEDS: DOCUSATE SODIUM SUGAR FREE 100MG/10ML UDC NG SCH ×2 (08:52→18:26)
[2019-05-09] MEDS: ASCORBIC ACID 500 MG TABLET PO SCH (08:52)
[2019-05-09] MEDS: MIDODRINE HCL 5MG TABLET PO SCH ×3 (08:52→18:27)
[2019-05-09] MEDS: ZINC SULFATE 220 MG ( 50 ) CAPSULE PO SCH (08:52)
[2019-05-09] MEDS: METOCLOPRAMIDE HCL 10MG/2ML VIAL IV SCH ×3 (12:45→23:46)
[2019-05-09 15:34] LABS: HEMOGLOBIN. 8.9 g/dL (14.0-18.0); MEAN CORPUSCULAR HEMOGLOBIN 28.7 pg (28.0-32.0); MEAN PLATELET VOLUME 9.1 fl (7.4-10.4); PLATELET 283 x1000/uL (130-400); RED BLOOD CELL COUNT 3.11 mill/uL (4.7-6.1); RED CELL DISTRIBUTION WIDTH 20.5 % (11.6-14.6)
[2019-05-09 16:03] LABS: NUCLEATED RED BLOOD CELLS 7 /100 WBC; PLATELET ESTIMATE NORMAL
[2019-05-09] MEDS: DIGOXIN 500MCG/2ML AMP IV SCH (18:27)
[2019-05-09] MEDS: VANCOMYCIN 1 G PREMIX 200 ML IV SCH (20:59)
[2019-05-10] VITALS (38 sets, daily range): BP systolic 42–148; BP diastolic 18–106
[2019-05-10] MEDS: IPRATROPIUM/ALBUTEROL 0.5-3(2.5)MG/3ML NEB HHN SCH ×5 (00:38→17:23)
[2019-05-10] MEDS: ACETYLCYSTEINE 100MG/ML 10% VIAL 4ML INH SCH ×3 (00:39→18:01)
[2019-05-10] MEDS: INSULIN LISPRO 100 UNITS/ML SUBCUT SCH ×2 (06:00→12:00)
[2019-05-10] MEDS: BLOOD SUGAR DIAGNOSTIC STRIP TEST SCH ×3 (06:00→18:00)
[2019-05-10] MEDS: METOCLOPRAMIDE HCL 10MG/2ML VIAL IV SCH ×3 (07:02→19:04)
[2019-05-10] MEDS: METHYLPREDNISOLONE SOD SUCC 40 MG/ML VIAL IV SCH ×2 (07:02→16:02)
[2019-05-10] MEDS: PANTOPRAZOLE SODIUM 40 MG/VIAL IV SCH (08:34)
[2019-05-10] MEDS: ZINC SULFATE 220 MG ( 50 ) CAPSULE PO SCH (08:34)
[2019-05-10] MEDS: ASCORBIC ACID 500 MG TABLET PO SCH (08:34)
[2019-05-10] MEDS: MIDODRINE HCL 5MG TABLET PO SCH ×3 (08:34→19:06)
[2019-05-10] MEDS: DOCUSATE SODIUM SUGAR FREE 100MG/10ML UDC NG SCH ×2 (08:35→19:04)
[2019-05-10] MEDS: FUROSEMIDE 40MG/4ML VIAL IVP SCH (08:35)
[2019-05-10] MEDS: SUCRALFATE 1 G/10 ML UDC GT SCH ×2 (11:52→19:04)
[2019-05-10] MEDS ORDERED: SODIUM BICARBONATE 8.4% 1 MEQ/ML 50ML SYR IV NR (13:30)
[2019-05-10] MEDS: NOREPINEPHRINE 4 MG in DEXT 5% WATER 246 ML IV PRN ×2 (13:56→14:16)
[2019-05-10] MEDS ORDERED: SODIUM BICARBONATE 150 MEQ in DEXTROSE 5% WATER 1,000 ML IV SCH (14:00)
[2019-05-10] MEDS: EPINEPHRINE 1 MG in SODIUM CHLORIDE 0.9% 249 ML IV PRN ×2 (14:19→15:55)
[2019-05-10] MEDS ORDERED: MEROPENEM 500 MG in SODIUM CHLORIDE 0.9% 50 ML IV SCH (14:30)
[2019-05-10] MEDS ORDERED: NOREPINEPHRINE 16 MG in DEXT 5% WATER 484 ML IV PRN (14:30)
[2019-05-10 14:37] LABS: BG BASE EXCESS -8.8 mmol/L (-2.0-2.0); BG DEOXYHEMOGLOBIN 2.6 % (0.0-5.0); BG FRACTION INSPIRED OXYGEN 100; BG HCO3 ACT 21.1 mmol/L (22.0-26.0); BG METHEMOGLOBIN 0.5 % (0.0-1.5); BG OXYGEN SATURATION 97.4 % (92.0-98.5); BG OXYHEMOGLOBIN 95.9 % (94.0-97.0); BG PCO2 78.1 mmHg (35.0-45.0); BG PH 7.049 (7.350-7.450); BG PO2 153.3 mmHg (75.0-100.0); BG SAMPLE SITE LEFT FEMORAL; BG TIDAL VOLUME(mL) 500 mL; BG TOTAL HEMOGLOBIN 6.6 g/dL (12.0-18.0); BG VENT MODE VENT - A/C; BG VENT RATE 14 set
[2019-05-10] MEDS: PHENYLEPHRINE 40 MG in DEXT 5% WATER 496 ML IV PRN ×2 (15:56→19:05)
[2019-05-10 17:06] LABS: BG BASE EXCESS -7.2 mmol/L (-2.0-2.0); BG CARBOXYHEMOGLOBIN 1.3 % (0.5-1.5); BG DEOXYHEMOGLOBIN 38.6 % (0.0-5.0); BG FRACTION INSPIRED OXYGEN 100; BG HCO3 ACT 21.6 mmol/L (22.0-26.0); BG METHEMOGLOBIN 0.1 % (0.0-1.5); BG OXYGEN SATURATION 60.9 % (92.0-98.5); BG PCO2 68.2 mmHg (35.0-45.0); BG PH 7.119 (7.350-7.450); BG PO2 47.8 mmHg (75.0-100.0); BG SAMPLE SITE LEFT FEMORAL; BG TIDAL VOLUME(mL) 550 mL; BG TOTAL HEMOGLOBIN 6.4 g/dL (12.0-18.0); BG VENT MODE VENT - A/C; BG VENT RATE 20 set
[2019-05-10] MEDS ORDERED: SODIUM CHLORIDE 0.9% IV PRN (17:15)
[2019-05-10] MEDS ORDERED: EPINEPHRINE IV PRN (17:15)
[2019-05-10] MEDS ORDERED: EPINEPHRINE 2 MG in SODIUM CHLORIDE 0.9% 498 ML IV PRN (17:45)
[2019-05-10] MEDS: IPRATROPIUM/ALBUTEROL 0.5-3(2.5)MG/3ML NEB HHN PRN (18:01)
[2019-05-10] MEDS: DIGOXIN 500MCG/2ML AMP IV SCH (19:05)
[2019-05-10] MEDS ORDERED: PANTOPRAZOLE SODIUM 40 MG/VIAL IV SCH (21:00)
== END 2019-05-10 19:00 | disposition expired | DRG 871 ==
LOC: ER 01:10 → 6WST 04:37 → ENRESERV 11:49 → MICUNO 05-02 12:10 → 3WST 05-10 03:12 → MICUSO 05-10 13:14
PROVIDERS: ADMIT Internal Medicine; ATTEND Internal Medicine
PROC: 5A1935Z Respiratory Ventilation, Less than 24 Consecutive Hours (ICD-10-PCS; principal; 2019-05-10)
PROC: 0BH17EZ Insertion of Endotracheal Airway into Trachea, Via Natural or Artificial Opening (ICD-10-PCS; 2019-05-10)
PROC: 5A12012 Performance of Cardiac Output, Single, Manual (ICD-10-PCS; 2019-05-10)
PROC: 5A12012 Performance of Cardiac Output, Single, Manual (ICD-10-PCS; 2019-05-10)
DX: A41.02 Sepsis due to Methicillin resistant Staphylococcus aureus (principal); J18.9 Pneumonia, unspecified organism; E43 Unspecified severe protein-calorie malnutrition; I50.23 Acute on chronic systolic (congestive) heart failure; J96.00 Acute respiratory failure, unspecified whether with hypoxia or hypercapnia; R65.21 Severe sepsis with septic shock; K92.2 Gastrointestinal hemorrhage, unspecified; I48.20 Chronic atrial fibrillation, unspecified; E87.1 Hypo-osmolality and hyponatremia; I42.9 Cardiomyopathy, unspecified; J44.0 Chronic obstructive pulmonary disease with (acute) lower respiratory infection; G93.49 Other encephalopathy; I46.9 Cardiac arrest, cause unspecified; E11.9 Type 2 diabetes mellitus without complications; E87.8 Other disorders of electrolyte and fluid balance, not elsewhere classified; I27.20 Pulmonary hypertension, unspecified; F03.90 Unspecified dementia, unspecified severity, without behavioral disturbance, psychotic disturbance, mood disturbance, and anxiety; D50.9 Iron deficiency anemia, unspecified; R13.10 Dysphagia, unspecified; I11.0 Hypertensive heart disease with heart failure; E11.51 Type 2 diabetes mellitus with diabetic peripheral angiopathy without gangrene; F41.9 Anxiety disorder, unspecified; I99.8 Other disorder of circulatory system; N40.0 Benign prostatic hyperplasia without lower urinary tract symptoms; Z93.1 Gastrostomy status; Z86.73 Personal history of transient ischemic attack (TIA), and cerebral infarction without residual deficits; Z68.21 Body mass index [BMI] 21.0-21.9, adult
CPT/HCPCS: 36415; 36600; 71045; 75635; 80048; 80053; 80162; 80202; 82270; 82375; 82728; 82805; 82962; 83540; 83550; 83605; 83880; 84145; 84484; 85025; 85027; 86850; 86900; 87070; 87077; 87186; 93005; 93306; 93923; 94640; 99285; A6261; C9113; J1160; J1815; J1940; J2185; J2370; J2543; J2765; J2920; J2930; J3370; J3480; J3490; J7040; J7050; J7060; J7070; J7608; J7620; Q9967; A4315